=== PATIENT | female | born 1995 | race Caucasian/White ===

== ENCOUNTER 2018-11-29 14:34 | Emergency (ER) | payer OTHER ==
[~2018-11-29] VITALS: Ht 160 cm; Wt 75.1 kg
[~2018-11-29 14:34] MED LIST: IBUP-1222 PO; OXYC-302 PO
[2018-11-29 15:10] LABS: BASOPHILS # (AUTO) 0.01 x10^3/uL (0-0.1); BASOPHILS % (AUTO) 0 % (0-1); EOSINOPHILS # (AUTO) 0.11 x10^3/uL (0-0.4); EOSINOPHILS % (AUTO) 1 % (1-7); LYMPHOCYTES # (AUTO) 1.13 x10^3/uL (1-3.4); LYMPHOCYTES % (AUTO) 15 % (22-44); MD NO; MEAN CORPUSCULAR HEMOGLOBIN 31.2 pg (27.0-34.8); MEAN CORPUSCULAR HGB CONC 33.8 g/dL (32.4-35.8); MEAN CORPUSCULAR VOLUME 92.3 fL (80-100); MEAN PLATELET VOLUME 7.9 fL (7.4-10.4); MONOCYTES # (AUTO) 0.82 x10^3/uL (0.2-0.8); MONOCYTES % (AUTO) 11 % (2-9); NEUTROPHILS # (AUTO) 5.65 x10^3/uL (1.8-6.8); NEUTROPHILS % (AUTO) 73 % (42-75); PLATELET COUNT 305 x10^3/uL (130-400); RED BLOOD COUNT 4.06 x10^6/uL (3.82-5.3); RED CELL DISTRIBUTION WIDTH 13.8 % (9.6-15.2)
[2018-11-29 15:20] LABS: ALANINE AMINOTRANSFERASE 18 U/L (12-78); ALBUMIN 2.7 g/dL (3.4-5.0); ANION GAP 9 mmol/L (5-15); CALCIUM 8.6 mg/dL (8.5-10.1); CHLORIDE 106 mmol/L (98-107); CREATININE 0.61 mg/dL (0.55-1.02)
[2018-11-29 15:22] LABS: INTERNATIONAL NORMALIZED RATIO 0.89 (0.93-1.1); PROTHROMBIN TIME 9.5 Seconds (9.6-11.5)
[2018-11-29 15:24] LABS: ALKALINE PHOSPHATASE 101 U/L (45-117); BILIRUBIN,TOTAL 0.3 mg/dL (0.2-1.0); TOTAL PROTEIN 6.8 g/dL (6.4-8.2); TROPONIN I < 0.015 ng/mL (0.000-0.045)
--- NOTE | 2018-11-29 16:04 | NUR ---
FIRST CONTACT WITH PT. PT CONNECTED TO ALL MONITORS. ED MD AT BEDSIDE. ALL SAFETY MEASURES IN PLACE. PT IS TACHYCARDIC AT 100-110, AND BP 125/81. PT IS AOX4 AND HAS UNLABORED RESPIRATIONS EQUAL BILATERALLY. PT IS CURRENTLY . PT STATES, "I DON'T HAVE ANY PRIOR HEART ISSUES. MY LEGS HURT WHEN I SIT FOR MORE THAN 30 MINUTES BECAUSE I AM AND LEGS SWELL." NADN. ALL SAFETY MEASURES IN PLACE. LABS AND IMAGING DONE FOR PT PRIOR TO ARRIVAL TO ROOM.
--- NOTE | 2018-11-29 16:11 | NUR ---
PER PT, "I WENT TO THE URGENT CARE AND THEY SENT ME HERE, I HAD CHEST PAIN, THEY SENT ME HERE TO RULE OUT A BLOOD CLOT. AT FIRST THE CHEST PAIN WAS JUST EXERTION, BUT NOW IT IS ALL THE TIME. IT STARTED OCCASIONALLY FOUR DAYS AGO, NOW IT IS ALL THE TIME. THE PAIN RADIATES TO MY LEFT SIDE OF MY BACK. IT ALMOST RADIATES TO MY LEFT ARM, BUT IT IS HARD TO DIFFERENTIATE IF IT'S FROM LAYING ON IT AND BEING SUPER . IT IS A SHARP PAIN AND IT IS WORSE WHEN I TALK, BREATH, COUGH, OR SNEEZE."
[2018-11-29] MEDS ORDERED: SERT25TA PO (16:21)
[2018-11-29] MEDS ORDERED: PREN1TAB10 PO (16:21)
[2018-11-29 17:56] VITALS: BP 142/91
--- NOTE | 2018-11-29 17:57 | NUR ---
PT BACK TO ROOM ON GURNEY FROM IMAGING. PT'S MOM AT BEDSIDE. NADN. NO NEEDS EXPRESSED BY PT AT THIS TIME.
[2018-11-29] MEDS ORDERED: OMNIPAQUE 350 MG/ML, 100ML BOTTLE ONE (18:28)
--- NOTE | 2018-11-29 18:47 | NUR ---
Patient given discharge instructions and they have confirmed that they understand the instructions. Patient ambulatory with steady gait. PT LEFT WITH DISCHARGE INSTRUCTIONS AND ALL PERSONAL BELONGINGS.
== END 2018-11-29 18:52 | disposition home or self-care (01) ==
LOC: ED 18:46
DX: O99.513 Diseases of the respiratory system complicating pregnancy, third trimester (principal); Z3A.34 34 weeks gestation of pregnancy; J20.9 Acute bronchitis, unspecified
CPT/HCPCS: 36415; 71045; 71275; 80053; 84484; 85025; 85379; 85610; 93005; 99284; Q9967